=== PATIENT | female | born 1980 | race Caucasian/White ===

== ENCOUNTER 2020-04-14 13:39 | Outpatient (CLI) | payer MEDICARE, MEDICAID, SELFPAY ==
--- NOTE | 2020-04-14 13:45 | MR_ITS ---
WS: [id number] MRI HEAD WITH CONTRAST TECHNIQUE: Sagittal T1, T2 axial, T2 axial FLAIR, axial susceptibility weighted imaging, axial diffus ion weighted images, and coronal T2 images were obtained. Pre and post-T1 axial and post T1 coronal i mages. ADC and FSPGR images. CLINICAL INFORMATION: MULTIPLE SCLEROSIS COMPARISON: MRI FINDINGS: No evidence of restricted diffusion to suggest acute ischemia. Several foci of T2 shine through on th e diffusion weighted imaging. Moderate to advanced supra and infratentorial white matter changes cons istent with history of demyelinating disease. Number and distribution of lesions is not significantly changed since . No significant disease progression. Number and distribution of lesions is n ot significantly changed since 2011 Moderate parenchymal volume loss. Diffuse chronic thinning of the corpus callosum. No abnormal gadoli nium enhancement. No enhancing lesions to indicate active disease. Moderate T1 hypointense lesion charan d. Normal optic chiasm and pituitary infundibulum. Normal dural venous sinuses. Normal cavernous sinu ses and Meckel's cave. Prominent lymphoid tissue in the posterior nasopharynx likely reactive. Parana dale sinuses and mastoid air cells well aerated. MR/MR head wo/w con [id number] IMPRESSION: 1. Moderate to advanced supra and infratentorial white matter changes compatib le with history of demyelinating disease. 2. Number and distribution of lesions is not significantly changed since 2011. No significant disease progression. 3. Moderate parenchymal volume loss is unchanged. 4. Moderate T1 hypointense lesion load. 5. Moderate diffuse thinning of the corpus callosum. 6. No abnormal gadolinium enhancement to indicate active disease. 7. No other significant changes.
== END 2020-04-14 13:40 | disposition home or self-care (01) ==
LOC: RADSHAW 13:42
PROVIDERS: PCP Nurse Practitioner Family; Visit Provider Psychiatry & Neurology Neurology
DX: G35 Multiple sclerosis (principal)
CPT/HCPCS: 70553; A9579

== ENCOUNTER 2021-08-03 11:06 | Outpatient (CLI) | payer MEDICARE, MEDICAID, SELFPAY ==
--- NOTE | 2021-08-03 11:23 | MR_ITS ---
WS: [id number] MRI BRAIN WITH AND WITHOUT CONTRAST HISTORY: MULTIPLE SCLEROSIS COMPARISON: 04/14/2020 TECHNIQUE: Multiplanar imaging performed through the brain with MultiHance 18 ml's IV. No evidence for restricted diffusion to suggest acute ischemia. There are several areas of T2 shine t hrough. There are significant supratentorial and infratentorial white matter signal abnormalities con sistent with a history of demyelination. These are predominantly in the supratentorial distribution. There is marked thinning which is chronic of the corpus callosum. Pericallosal white matter lesions a re stable. On the T1 sequences there are marked areas of decreased signal. No susceptibility artifacts or prior lacunar infarcts. Ventricles and extra-axial spaces are normal. Clivus and pituitary gland are normal. Visualized posterior fossa and brainstem are also normal. Postcontrast images are negative for masses or vascular malformations. Demyelinating lesions do not e nhance. Dural venous sinuses are normal. Paranasal sinuses: Well aerated with no significant disease. Mastoid air cells: Normal. Calvarium and scalp: Normal. MR/MR head wo/w con [id number] IMPRESSION: 1. No acute diffusion-weighted abnormalities or infarct. 2. Moderate to severe supratentorial and infratentorial white matter lesions c onsistent with multiple sclerosis are stable. No active demyelination. No horton e in the extent of the demyelinating lesion since 2011. 3. Mild atrophy and chronic microvascular ischemic disease. 4. Stable diffuse chronic thinning of the corpus callosum.
[2021-08-03] MEDS: gadobenate dimeglumine 20 mL vial IV (12:07)
== END 2021-08-03 11:07 | disposition home or self-care (01) ==
PROVIDERS: PCP Nurse Practitioner Family; Visit Provider Psychiatry & Neurology Neurology
DX: G35 Multiple sclerosis (principal); I67.82 Cerebral ischemia; G31.9 Degenerative disease of nervous system, unspecified
CPT/HCPCS: 70553

== ENCOUNTER → 2022-07-18 10:50 | Outpatient (BNVA) | payer MEDICARE, MEDICAID, SELFPAY | PROVIDERS: PCP Nurse Practitioner Family; Visit Provider Podiatrist Foot & Ankle Surgery | DX: Q82.8 Other specified congenital malformations of skin (principal); L84 Corns and callosities; L90.9 Atrophic disorder of skin, unspecified | CPT/HCPCS: 73630; 99203 ==

== ENCOUNTER 2023-04-19 12:17 | Outpatient (CLI) | payer MEDICARE, MEDICAID, SELFPAY ==
--- NOTE | 2023-04-19 12:27 | MR_ITS ---
WS: [id number] MRI BRAIN WITHOUT CONTRAST HISTORY: MULTIPLE SCLEROSIS COMPARISON: 08/03/2021 TECHNIQUE: Diffusion imaging, multiplanar T1, T2 and FLAIR imaging obtained. Focal diffusion abnormality in the posterior LEFT frontal cortex. Pericallosal and bilateral white ma tter lesions in the cerebrum and cerebellum on this unenhanced exam appear stable. White matter lesio ns along the temporal lobe are also stable. There are numerous demyelinating lesions along the perica llosal distribution extending above the lateral ventricles. A few demyelinating lesions have black ho les taking into consideration the slight change in technique and positioning no obvious progression. FLAIR signal abnormalities throughout a large portion of the corpus callosum. Ventricles are normal size. No inferior displacement of cerebellar tonsils. The sella turcica and pituitary gland are unremarkabl e. Dural venous sinuses and [place] of [place] demonstrate no abnormality on this unenhanced studies. Paranasal sinuses: Clear. Mastoid air cells: Normal. Calvarium and scalp: Intact. IMPRESSION: 1. Focal diffusion abnormality in the posterior LEFT frontal lobe cortex. This can be seen with acut e to subacute demyelination or ischemia. No post contrast imaging to evaluate for abnormal enhancemen t. 2. Advanced changes of supratentorial and infratentorial white matter lesions consistent with multip le sclerosis appear stable. No obvious progression on this unenhanced exam. There is also evidence fo r a few areas of axonal destruction.
--- NOTE | 2023-04-19 12:27 | MR_ITS ---
WS: [id number] MRI CERVICAL SPINE noncontrast. HISTORY: MULTIPLE SCLEROSIS COMPARISON: None available. Technique: Multiplanar, multisequence noncontrast imaging of the cervical spine. There is significant motion artifact on numerous sequences. Patient was unable to remain still for th is examination. On the sagittal T2 sequence there is some very subtle areas of increased but ill-defined signal in th e cervical cord most significant at C2-3 and probably to the RIGHT of midline at C4-5. Unfortunately the STIR sequence is suboptimal. Craniocervical junction, C1 and C2 relationship, odontoid process and soft tissues are normal. C2-C3: Normal. C3-C4: Tiny central disc protrusion. No high-grade stenosis. C4-C5: Mild osteophytic ridging and foraminal narrowing. C5-C6: Mild annular disc bulging with a tiny central disc protrusion and foraminal narrowing. C6-C7: No stenosis. C7-T1: Normal. Paraspinal soft tissue are normal. IMPRESSION: 1. Suboptimal evaluation as patient was unable to remain still for this examination. 2. Study performed without IV contrast. 3. Subtle areas of increased T2 signal in the cervical cord at C2-3 and C4-5. Suspicious areas for de myelination. 4. No cord atrophy or enlargement. 5. Small multilevel foraminal osteophytes with a tiny central disc protrusion at C3-4.
== END 2023-04-19 12:18 | disposition home or self-care (01) ==
LOC: RAD 12:18
PROVIDERS: PCP Nurse Practitioner Family; Visit Provider Psychiatry & Neurology Neurology
DX: G35 Multiple sclerosis (principal); M25.78 Osteophyte, vertebrae
CPT/HCPCS: 70551; 72141

== ENCOUNTER → 2023-06-13 15:30 | Outpatient (BNVA) | payer MEDICARE, MEDICAID, SELFPAY | PROVIDERS: PCP Nurse Practitioner Family; Visit Provider Nurse Practitioner Women's Health | DX: Z01.419 Encounter for gynecological examination (general) (routine) without abnormal findings (principal) | CPT/HCPCS: 87624 ==

== ENCOUNTER 2023-06-25 14:07 | Outpatient (CLI) | payer MEDICARE, MEDICAID, SELFPAY ==
--- NOTE | 2023-06-25 14:22 | MM_ITS ---
WS: [id number] DIAGNOSTIC BILATERAL DIGITAL BREAST TOMOSYNTHESIS MAMMOGRAPHY WITH CAD RIGHT breast ultrasound, limited HISTORY: N63.10 - Unspecified lump in the right breast, unspecifie... COMPARISON: None available. TECHNIQUE: Bilateral craniocaudad, mediolateral oblique, and mediolateral views are submitted with to mosynthesis and SM. Spot compression RIGHT CC and MLO. Computer aided detection utilized. Breast composition: There are scattered areas of fibroglandular density. No mass or distortion identi fied. There is no abnormality in the upper outer quadrant of the RIGHT breast at the palpable site. N o suspicious calcifications. RIGHT breast ultrasound, limited. Ultrasound is directed to the 10:00 axis of the RIGHT breast in the area of palpable concern. There i s no mass identified. No distortion. IMPRESSION: MM/[place] [id number] BI-RADS: 1-Negative FOLLOW UP: 1 Year Follow-up
== END 2023-06-25 14:08 | disposition home or self-care (01) ==
LOC: RAD 14:07
PROVIDERS: PCP Nurse Practitioner Family; Visit Provider Nurse Practitioner Family
DX: N63.11 Unspecified lump in the right breast, upper outer quadrant (principal); R92.323 Mammographic fibroglandular density, bilateral breasts
CPT/HCPCS: 76642; 77062; G0279

== ENCOUNTER 2023-11-07 06:00 | Outpatient (RCR) | payer MEDICARE, MEDICAID, SELFPAY | END 2023-12-01 23:59 | disposition home or self-care (01) | LOC: TPT 06:00 | PROVIDERS: PCP Nurse Practitioner Family; Visit Provider Psychiatry & Neurology Neurology | DX: G35 Multiple sclerosis (principal) | CPT/HCPCS: 97110; 97162 ==

== ENCOUNTER 2023-12-02 06:00 | Outpatient (RCR) | payer MEDICARE, MEDICAID, SELFPAY | END 2024-01-01 23:59 | disposition home or self-care (01) | LOC: TPT 06:00 | PROVIDERS: PCP Nurse Practitioner Family; Visit Provider Psychiatry & Neurology Neurology | DX: G35 Multiple sclerosis (principal) | CPT/HCPCS: 97110 ==

== ENCOUNTER 2024-01-02 06:00 | Outpatient (RCR) | payer MEDICARE, MEDICAID, SELFPAY | END 2024-02-01 23:59 | disposition home or self-care (01) | LOC: TPT 06:00 | PROVIDERS: PCP Nurse Practitioner Family; Visit Provider Psychiatry & Neurology Neurology | DX: G35 Multiple sclerosis (principal) | CPT/HCPCS: 97110 ==

== ENCOUNTER 2024-10-07 08:35 | Outpatient (CLI) | payer MEDICARE, MEDICAID, SELFPAY ==
--- NOTE | 2024-10-07 08:39 | MM_ITS ---
WS: [id number] BILATERAL SCREENING DIGITAL TOMOSYNTHESIS MAMMOGRAM WITH CAD HISTORY: SCREENING COMPARISON: 06/25/2023 Bilateral CC and MLO views with tomosynthesis and synthetic mammography submitted. Computer aided detection analyzed. Breast composition: There are scattered areas of fibroglandular density. No suspicious masses, microcalcifications or architectural distortion. MM/MM scr BI tomosynthesis [id number] IMPRESSION: BI-RADS: 2 - Benign. FOLLOW UP: 1 Year Follow-up
== END 2024-10-07 08:36 | disposition home or self-care (01) ==
PROVIDERS: PCP Nurse Practitioner Family; Visit Provider Nurse Practitioner Family
DX: Z12.31 Encounter for screening mammogram for malignant neoplasm of breast (principal); R92.323 Mammographic fibroglandular density, bilateral breasts
CPT/HCPCS: 77063; 77067

== ENCOUNTER 2025-04-14 08:32 | Outpatient (CLI) | payer MEDICARE, MEDICAID, SELFPAY ==
--- NOTE | 2025-04-14 08:36 | MR_ITS ---
WS: [id number] MRI HEAD WITH CONTRAST TECHNIQUE: Sagittal T1, T2 axial, T2 axial FLAIR, axial susceptibility weighted imaging, axial diffusion weighted images, and coronal T2 images were obtained. Pre and post-T1 axial and post T1 coronal images. ADC and FSPGR images. CLINICAL INFORMATION: MULTIPLE SCLEROSIS RELAPSING-REMITTING COMPARISON: 2022 FINDINGS: No significant changes in the number or distribution of demyelinating lesions compared to previous. No enhancing lesions to indicate active disease. Mild parenchymal volume loss. Mild T1 hypointense lesion load. Mild diffuse thinning of the corpus callosum similar to previous. No hemosiderin. Normal optic chiasm and pituitary infundibulum. No other acute findings. MR/MR head wo/w con [id number] IMPRESSION: 1. No enhancing lesions to indicate active disease. 2. Mild T1 hypointense lesion load. 3. Mild atrophy of the corpus callosum. 4. Mild parenchymal volume loss. 5. Stable moderate chronic patchy supra and infratentorial demyelinating lesio ns.
--- NOTE | 2025-04-14 08:48 | MR_ITS ---
WS: [email or web address] MR CERVICAL SPINE WO/W COMPARISON: 2022 HISTORY: MS TECHNIQUE: Sagittal T1, T2 and T2 inversion recovery; axial T2, T2 gradient and fiesta. Post gadolinium imaging with fat saturation technique. FINDINGS:Straightening of the normal cervical lordosis. No high grade central canal narrowing. Small previously described chronic peripheral demyelinating plaques in the upper cervical cord at C3 and C4 similar to previous. Additional chronic demyelinating plaques at C7. Images degraded by motion. No enhancing lesions to indicate active disease. No significant cord atrophy C2-3: Spinal canal and foramen are patent. C3-4: Disc osteophyte complex. Mild facet arthropathy. Mild LEFT bony foraminal narrowing. C4-5: Disc osteophyte complex. Mild facet arthropathy. Mild LEFT bony foraminal narrowing. C5-6: Mild disc bulge with endplate ridging. Mild facet arthropathy. Mild LEFT bony foraminal narrowing. C6-7: Mild disc osteophyte complex. Spinal canal and foramen are patent. C7-T1: Spinal canal and foramen are patent. MR/MR cervical spine wo/w [id number] IMPRESSION: Some images degraded by motion 1. No enhancing demyelinating lesions within the cervical cord to indicate act [place] disease. 2. No significant cord atrophy. 3. A few scattered chronic demyelinating plaques described above. 4. Mild spondylitic changes.
== END 2025-04-14 08:33 | disposition home or self-care (01) ==
LOC: RAD 08:33
PROVIDERS: PCP Nurse Practitioner Family; Visit Provider Psychiatry & Neurology Neurology
DX: G35.A Relapsing-remitting multiple sclerosis (principal); M25.78 Osteophyte, vertebrae; M47.812 Spondylosis without myelopathy or radiculopathy, cervical region; M50.322 Other cervical disc degeneration at C5-C6 level; M48.02 Spinal stenosis, cervical region; R90.0 Intracranial space-occupying lesion found on diagnostic imaging of central nervous system; G93.9 Disorder of brain, unspecified; G31.9 Degenerative disease of nervous system, unspecified; G31.89 Other specified degenerative diseases of nervous system; G37.89 Other specified demyelinating diseases of central nervous system
CPT/HCPCS: 70553; 72156